=== PATIENT | male | born 1960 | race Caucasian/White ===

== ENCOUNTER 2020-09-03 16:12 | Inpatient (IN) | payer OTHER ==
[~2020-09-03] VITALS: Ht 198.1 cm; Wt 122.5 kg
[2020-09-03 17:19] LABS: HEMOGLOBIN 17.6 gm/dl (12.3-15.3); RED BLOOD COUNT 5.33 M/UL (4.00-5.10); WHITE BLOOD COUNT 15.1 K/UL (4.5-11.0)
[2020-09-03 17:41] LABS: BUN/CREATININE RATIO 35 (0-10)
[2020-09-03] MEDS ORDERED: NORVASC10 MG PO (21:24)
[2020-09-03] MEDS ORDERED: TRIAMTERENE-HC1 EAC4 PO (21:24)
[2020-09-03] MEDS ORDERED: LOPRESSOR 25 MG25 MG PO (21:25)
[2020-09-03] MEDS ORDERED: GLUCOTROL 10 MG10 MG PO (21:30)
[2020-09-03] MEDS ORDERED: MULTI-VITAMIN1 EACH PO (21:34)
[2020-09-03] MEDS ORDERED: CINNAMON500 MG PO (21:34)
[2020-09-03] MEDS ORDERED: MEGARED OMEGA-1 EAC3 PO (21:43)
[2020-09-03] MEDS ORDERED: OSTEO BI-FLEX1 EAC1 PO (21:44)
[2020-09-03] MEDS ORDERED: OZEMPIC1 MG/0.75 SQ (21:49)
[2020-09-03] MEDS ORDERED: JARDIANCE25 MG PO (21:50)
[2020-09-04 03:53] LABS: HEMOGLOBIN 17.8 gm/dl (14.0-17.5); RED BLOOD COUNT 5.43 M/UL (4.20-5.50); WHITE BLOOD COUNT 18.3 K/UL (4.5-11.0)
[2020-09-04 04:11] LABS: BUN/CREATININE RATIO 29 (0-10)
[2020-09-05 04:08] LABS: HEMOGLOBIN 16.7 gm/dl (14.0-17.5); RED BLOOD COUNT 5.14 M/UL (4.20-5.50)
[2020-09-05 04:10] LABS: WHITE BLOOD COUNT 26.2 K/UL (4.5-11.0)
[2020-09-05 04:24] LABS: BUN/CREATININE RATIO 22 (0-10)
[2020-09-05 18:41] LABS: BUN/CREATININE RATIO 30 (0-10)
[2020-09-06 03:30] LABS: HEMOGLOBIN 15.8 gm/dl (14.0-17.5); RED BLOOD COUNT 4.82 M/UL (4.20-5.50); WHITE BLOOD COUNT 21.8 K/UL (4.5-11.0)
[2020-09-06 03:46] LABS: BUN/CREATININE RATIO 33 (0-10)
[2020-09-06] MEDS ORDERED: MIRALAX17 GM PO (14:26)
[2020-09-06] MEDS ORDERED: HYDROCODON-ACE1 EAC2 PO (16:27)
== END 2020-09-06 17:17 | disposition home health service (06) | DRG 418 ==
LOC: EDSEX 16:12 → ER1 16:12 → CDU 20:45 → MED SURG 4 20:45
PROVIDERS: Internal Medicine; Physician Assistant; Surgery; ADMIT Internal Medicine
PROC: 0FT44ZZ Resection of Gallbladder, Percutaneous Endoscopic Approach (ICD-10-PCS; principal; 2020-09-05 09:00)
DX: K80.00 Calculus of gallbladder with acute cholecystitis without obstruction (principal); E87.1 Hypo-osmolality and hyponatremia; E11.40 Type 2 diabetes mellitus with diabetic neuropathy, unspecified; I10 Essential (primary) hypertension; Z20.822 Contact with and (suspected) exposure to COVID-19; Z89.422 Acquired absence of other left toe(s); D72.829 Elevated white blood cell count, unspecified; G47.33 Obstructive sleep apnea (adult) (pediatric); Z79.84 Long term (current) use of oral hypoglycemic drugs; Z79.899 Other long term (current) drug therapy
CPT/HCPCS: 36415; 76705; 80048; 80053; 82150; 82550; 82553; 82962; 83690; 83874; 84484; 85025; 85027; 93005; 96365; 96372; 96375; 96376; 99285; J1100; J1170; J1650; J2250; J2270; J2405; J2543; J2704; J2710; J3010; J7030; J7120; Q9967; U0002

== ENCOUNTER → 2020-11-14 | Outpatient (CLI) | payer OTHER ==
[~2020-11-14] MED LIST: CINNAMON500 MG PO; GLUCOTROL 10 MG10 MG PO; HYDROCODON-ACE1 EAC2 PO; JARDIANCE25 MG PO; LOPRESSOR 25 MG25 MG PO; MEGARED OMEGA-1 EAC3 PO; MIRALAX17 GM PO; MULTI-VITAMIN1 EACH PO; NORVASC10 MG PO; OSTEO BI-FLEX1 EAC1 PO; OZEMPIC1 MG/0.75 SQ; TRIAMTERENE-HC1 EAC4 PO
== END ==
LOC: OPSV 06:30
DX: M72.0 Palmar fascial fibromatosis [Dupuytren] (principal)
CPT/HCPCS: J0775

== ENCOUNTER → 2021-11-27 | Outpatient (CLI) | payer OTHER | LOC: ECHO 09:06 | DX: H34.9 Unspecified retinal vascular occlusion (principal); I65.23 Occlusion and stenosis of bilateral carotid arteries | CPT/HCPCS: ECHO; 93306; 93880 ==

== ENCOUNTER → 2022-02-20 | Outpatient (CLI) | payer OTHER | LOC: KOH-I 02-12 09:15 | DX: R74.8 Abnormal levels of other serum enzymes (principal) | CPT/HCPCS: 76705 ==